=== PATIENT | male | born 1970 | race Caucasian/White ===

== ENCOUNTER 2019-09-09 15:59 | Emergency (ER) | payer OTHER, SELFPAY ==
--- NOTE | 2019-09-09 16:43 | HMH.EDUTC ---
[facility] [place] Clinical Impression: Viral syndrome Disposition: Home, Self-Care Condition on Discharge: Good Instructions: DI for Viral Syndrome, Preventing the Spread of Coronavirus Discharge Instructions Additional Instructions: Drink plenty of fluids. Take tylenol or ibuprofen for pain or fever. Take the medications as directed. Follow up with your regular doctor. GO TO THE ER FOR ANY WORSENING SYMPTOMS FOLLOW THE DIRECTIONS ON THE COVID-19 HAND OUT THAT WE GAVE YOU REGARDING SELF-ISOLATION UNTIL YOU KNOW YOUR COVID-19 RESULTS Prescriptions: Benzonatate [Tessalon Perle 100mg Cap] 100 mg PO TIDP PRN #30 cap PRN Reason: Cough Transmission Status: Received by [id number] Azithromycin [Z-Amos 250mg Tab*] 250 mg PO UD DOSE PK #6 tab Transmission Status: Received by [id number] Referrals: Eliu Perez MD [Primary Care Provider] - Forms: Work/School Release Time of Disposition: 17:09 Medical Decision Making - Medical Records Medical records reviewed: No: I reviewed the patient's medical records. - Delfino Inquiry Pt receiving controlled substance: No Vital Signs: 09/09/19 16:47 09/09/19 17:10 Temperature 98.5 F 98.5 F Temperature Source Oral Pulse Rate 89 Pulse Rate [Right Brachial] 89 Respiratory Rate 20 20 Blood Pressure 130/82 Blood Pressure [Right Arm] 130/82 Blood Pressure Mean [Right Arm] 98 Blood Pressure Source [Right Arm] Automatic Cuff Blood Pressure Position [Right Arm] Sitting 02 Sat by Pulse Oximetry 98 Oxygen Delivery Method Room Air - Lab Data Lab results reviewed: Yes: I reviewed the patient's lab results. Lab Results 09/09/19 16:38: Strep Scn Rapid Clinic Negative Orders (Tests/Meds): ORDERS Category Date Time Status SARS-CoV-2, MIKEL ([place]) Stat Lab 09/09/19 17:09 Received Strep Screen Confirmation Stat Micro 09/09/19 16:38 Received [facility] [place] - General Stated complaint: Cough, low grade fever 99.9 Time Seen by Provider: 09/09/19 16:43 - History of Present Illness Provider Complaint: He c/o feeling bad and having a fever up to 99.9 since yesterday. 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 - Related Data Previous Rx's Medication Instructions Recorded Azithromycin [Z-Amos 250mg Tab*] 250 mg PO UD DOSE PK #6 tab 09/09/19 Benzonatate [Tessalon Perle 100mg 100 mg PO TIDP PRN #30 cap 09/09/19 Cap] Allergies Allergy/AdvReac Type Severity Reaction Status Date / Time No Known Allergies Allergy Verified 09/09/19 16:51 [facility] [place] History - Hepatitis A Screen Attestation statement:: This patient has been screened for Hepatitis A risk factors. I have reviewed the patient's past medical history: Yes ROS Obtained: Yes All systems reviewed & no additional complaints - Constitutional Constitutional: Reports chills, Reports fever(s), Reports poor appetite, Reports malaise - Eyes Eyes: Reports system reviewed and no additional complaints, except as docu - ENT Ears, Nose, Mouth, and Throat: Reports as per HPI - Cardiovascular Cardiovascular: Denies chest pain - Respiratory Respiratory: Yes chest congestion, Yes cough Physical Exam - General General appearance: alert, in no apparent distress - Head Head exam: atraumatic, normocephalic, normal inspection - Eye Eye exam: Present: normal appearance, PERRL, EOMI - ENT ENT exam: Present: normal exam, normal oropharynx, mucous membranes moist, TM's normal bilaterally, normal external ear exam - Neck Neck exam: Present: normal inspection, full ROM, trachea midline. Absent: meningismus, lymphadenopathy - Chest Chest inspection: Present: normal inspection, symmetric chest wall rise. Absent: tenderness - Respiratory Respiratory exam: Present: normal lung sounds bilaterally. Absent: respiratory distress - Cardiovascular Cardiovascular exam: Present: regular rat
[2019-09-09 16:47] VITALS: BP 130/82; PULSE 89; RESP 20; TEMP 36.9; O2SAT 98; BMI 35.9
[2019-09-09 17:02] LABS: UTC Strep Screen (Rapid) Negative (Negative)
[2019-09-09 17:10] VITALS: BP 130/82; PULSE 89; RESP 20; TEMP 36.9; O2SAT 98
[2019-09-11 08:37] LABS: Covid-19 Nasal PCR Sendout UK DETECTED
== END 2019-09-09 17:12 | disposition home or self-care (01) ==
PROVIDERS: Emergency Provider Nurse Practitioner Family; PCP Family Medicine
DX: U07.1 COVID-19 (principal); B34.9 Viral infection, unspecified
CPT/HCPCS: 87880; 99202; U0003

== ENCOUNTER 2019-10-06 13:04 | Emergency (ER) | payer OTHER, SELFPAY ==
[2019-10-06 13:26] VITALS: BMI 37.3
[2019-10-06 13:28] VITALS: BP 173/90; PULSE 92; RESP 18; TEMP 36.9; O2SAT 98; BMI 37.3
--- NOTE | 2019-10-06 13:46 | HMH.EDUTC ---
[facility] [place]ression: COVID-19, Viral syndrome Disposition: Home, Self-Care Condition on Discharge: Good Instructions: Preventing the Spread of Coronavirus Discharge Instructions Additional Instructions: Drink plenty of fluids. Take tylenol or ibuprofen for pain or fever. Follow up with your regular doctor. GO TO THE ER FOR ANY WORSENING SYMPTOMS FOLLOW THE DIRECTIONS ON THE COVID-19 HAND OUT THAT WE GAVE YOU REGARDING SELF-ISOLATION UNTIL YOU KNOW YOUR COVID-19 RESULTS Referrals: Eliu Perez MD [Primary Care Provider] - Forms: Work/School Release Time of Disposition: 13:47 Medical Decision Making - Medical Records Medical records reviewed: No: I reviewed the patient's medical records. - Delfino Inquiry Pt receiving controlled substance: No Vital Signs: 10/06/19 13:28 Temperature 98.4 F Temperature Source Oral Pulse Rate [Left Brachial] 92 H Respiratory Rate 18 Blood Pressure [Left Arm] 173/90 H Blood Pressure Mean [Left Arm] 117 Blood Pressure Source [Left Arm] Automatic Cuff Blood Pressure Position [Left Arm] Sitting 02 Sat by Pulse Oximetry 98 Oxygen Delivery Method Room Air Orders (Tests/Meds): ORDERS Category Date Time Status Coronavirus 19 Swab (OUTPT) Routine Lab 10/06/19 13:39 [place] [facility] [place] - General Stated complaint: covid test previously positive Time Seen by Provider: 10/06/19 13:46 Mode of Arrival: Ambulatory Source of Information: Patient Limitations: No Limitations Description of Symptoms (Recalled from Triage Doc. by RN): PATIENT REQUESTING COVID TEST. HE TESTED POSITIVE 2 WEEKS AGO AND IS NEEDING A NEGATIVE RESULT TO RETURN TO WORK. DENIES ANY CURRENT SYMPTOMS HEENT Symptoms (Recalled from RN notes): No Resp Symptoms (Recalled from RN notes): No Skin Symptoms (Recalled from RN notes): No MS Symptoms (Recalled from RN notes): No Functional Status (Recalled from RN notes): WNL - History of Present Illness Provider Complaint: She has had COVID-19 over the past several weeks. Her work wants her to be retested before she returns to work. She denies any symptoms for the past week at least. She states that she never did run a fever or have many symptoms at all. - Related Data Previous Rx's Medication Instructions Recorded Azithromycin [Z-Amos 250mg Tab*] 250 mg PO UD DOSE PK #6 tab 09/09/19 Benzonatate [Tessalon Perle 100mg 100 mg PO TIDP PRN #30 cap 09/09/19 Cap] Allergies Allergy/AdvReac Type Severity Reaction Status Date / Time No Known Allergies Allergy Verified 09/09/19 16:51 - Worker's Comp Is this a Worker's Comp case?: No H History - Hepatitis A Screen Drug use history?: No High risk sexual behaviors?: No History of sexually transmitted infection?: No Currently employed?: No Childcare worker?: No Do you have indoor plumbing?: Yes Do you have electricity?: Yes Attestation statement:: This patient has been screened for Hepatitis A risk factors. I have reviewed the patient's past medical history: Yes Medical History: Reports:: Diabetes Mellitus Type 2 - Social History Alcohol Intake: never Occupational Status: employed ROS Obtained: Yes All systems reviewed & no additional complaints - Constitutional Constitutional: Denies chills, Denies fever(s) - Eyes Eyes: Denies eye discharge - ENT Ears, Nose, Mouth, and Throat: Denies dizziness, Denies otalgia, Denies sore throat - Cardiovascular Cardiovascular: Denies chest pain - Respiratory Respiratory: No chest congestion, No cough, No dyspnea, No stridor, No wheezing - Gastrointestinal Gastrointestingal: Denies: abdominal pain, diarrhea, nausea, reflux, vomiting Physical Exam - General General appearance: alert, in no apparent distress - Head Head exam: atraumatic, normocephalic, normal inspection - Eye Eye exam: Present: normal appearance, PERRL, EOMI - ENT ENT exam: Present: normal exam, normal oropharynx, mucous mem
[2019-10-06 13:50] VITALS: BP 173/90; PULSE 92; RESP 18; TEMP 36.9; O2SAT 98
--- NOTE | 2019-10-06 17:06 | PC.NURSE ---
PATIENT NOTIFIED OF POSITIVE COVID-19 RESULT
== END 2019-10-06 13:55 | disposition home or self-care (01) ==
PROVIDERS: Emergency Provider Nurse Practitioner Family; PCP Family Medicine
DX: U07.1 COVID-19 (principal)
CPT/HCPCS: 99201; U0003

== ENCOUNTER → 2021-10-16 07:52 | Outpatient (CLI) | payer BC, SELFPAY ==
--- NOTE | 2021-10-16 07:56 | CA_ITS ---
FINAL REPORT TECHNIQUE: Grayscale, color Doppler and duplex Doppler ultrasound of the kidneys, aorta and renal arteries was performed. Multiple velocities were measured. CLINICAL HISTORY: HTN,DM,EX SMOKER FINDINGS: Aorta velocity: 103 cm/sec Right kidney: 14 cm. No evidence of hydronephrosis or mass. Right intrarenal RI: From 0.68-0.78 Right renal artery velocity: 182 cm/sec. Right RAR (Renal artery-Aortic Ratio): 1.8 Left Kidney: 13.8 cm. No evidence of hydronephrosis or mass. Left intrarenal RI: From 0.71-0.74 Left renal artery velocity: 176 cm/sec. Left RAR (Renal Artery-Aortic Ratio): 1.8 IMPRESSION: No evidence of significant renal artery stenosis. CT angiogram or postcontrast MR angiogram would be more sensitive for evaluation of possible renal artery stenosis. Reviewed, Interpreted and Dictated by Mary Diallo MD Transcribed by Celena Fang Authenticated and [facility]
== END ==
PROVIDERS: PCP Family Medicine; Visit Provider Family Medicine
DX: I10 Essential (primary) hypertension (principal)
CPT/HCPCS: 93976

== ENCOUNTER 2022-01-13 18:59 | Emergency (ER) | payer BC, SELFPAY ==
[2022-01-13 19:15] VITALS: BP 168/77; PULSE 91; RESP 20; TEMP 36.9; O2SAT 96; BMI 38.2
--- NOTE | 2022-01-13 19:26 | EXP.UTC ---
Discharge Plan Disposition Patient Disposition: Home, Self-Care Condition: Good Prescriptions Prescriptions: New amoxicillin-pot clavulanate 875-125 mg Tablet 1 tab PO Q12H Qty: 20 0RF fluticasone propionate [Flonase Allergy Relief] 50 mcg/actuation spray,suspension 1 spray intranasal DAILY Qty: 16 0RF Rx Instructions: administer into each nostril benzonatate 100 mg capsule 100 mg PO TID PRN (Reason: cough) Qty: 30 0RF No Action metformin 500 mg tablet 1,000 mg PO DAILY Label Comments: TAKE 1 TABLET BY MOUTH TWICE DAILY WITH MEALS carvedilol 25 mg tablet 25 mg PO BID Label Comments: TAKE 1 TABLET BY MOUTH TWICE DAILY atorvastatin 20 mg tablet 20 mg PO HS Label Comments: TAKE 1 TABLET BY MOUTH ONCE DAILY amlodipine-benazepril 10-40 mg capsule 1 cap PO DAILY Label Comments: TAKE 1 CAPSULE BY MOUTH ONCE DAILY Trulicity 1.5 mg/0.5 mL pen injector 1.5 mg SQ WEEKLY Label Comments: INJECT 1 SYRINGE SUBCUTANEOUSLY ONCE A WEEK Steglatro 15 mg tablet 15 mg PO DAILY Label Comments: TAKE 1 TABLET BY MOUTH ONCE DAILY Referrals Follow up/Referrals: Eliu Perez MD [Primary Care Provider] - See instructions Activity Restrictions/Add. Instructions Additional Instructions/Restrictions: *Monitor Temp, Over the counter Motrin or Tylenol as directed/as needed Tylenol every 4 hours and Motrin every 6 hours (as long as your family doctor has told you that you can take it) for fever or pain. and straight to ER if unable to lower temp less than 101.0 after medication given *Warm salt water gargles may help to soothe the throat *Throat Lozenges? *Warm fluids like tea with honey may help to soothe the throat? *Sleep elevated *Humidifier/Vaporizer Take medication as prescribed Your throat swab was sent for culture. Those results are typically sent to your primary care. Be sure to follow up in 2-3 days with your family doctor/primary care physician if no improvement so they can review those result and treat if necessary. If you don?t have a primary care doctor, I recommend you get one but in the mean time, you will have to return to a walk in clinic Follow up IMMEDIATELY for new or worsening symptoms or no Noticeable improvement over the next 48-72 hours. 911 for difficulty breathing or swallowing Clinical Impressions Clinical Impression: Sinusitis, Bronchitis Stand Alone Forms Stand Alone Forms: Work/School Release Instructions Patient Instructions: Sinusitis, DI for Sinusitis Discharge ED Provider: Remedios Bl[facility] [place] HPI General Stated complaint: headache, congestion, sore throat, cough Time Seen by Provider: 01/13/22 19:26 History of Present Illness Provider Complaint: Patient states that he started about with sinus congestion and pressure States that he has been taking OTC cold meds but not helped much States that now he is having pain in both ears sore throat and feels like it is trying to move into his chest like bronchitis so today he came in when he was still not feeling better to get checked out Related Data Home Medications Medication Instructions Recorded Confirmed amlodipine 10 mg-benazepril 40 mg 1 cap PO DAILY Hypertension 01/13/22 01/13/22 capsule atorvastatin 20 mg tablet 20 mg PO HS Cholesterol 01/13/22 01/13/22 carvedilol 25 mg tablet 25 mg PO BID Hypertension 01/13/22 01/13/22 dulaglutide 1.5 mg/0.5 mL 1.5 mg SQ WEEKLY Diabetes 01/13/22 01/13/22 subcutaneous pen injector (Trulicity) ertugliflozin 15 mg tablet 15 mg PO DAILY . 01/13/22 01/13/22 (Steglatro) metformin 500 mg tablet 1,000 mg PO DAILY Diabetes 01/13/22 01/13/22 Previous Rx's Medication Instructions Recorded amoxicillin 875 mg-potassium 1 tab PO Q12H #20 tabs 01/13/22 clavulanate 125 mg tablet benzonatate 100 mg capsule 100 mg PO TID PRN cough #30 caps 01/13/22 fluticasone pr
[2022-01-13 19:34] LABS: UTC Influenza A Antigen Negative (Negative); UTC Influenza B Antigen Negative (Negative); UTC Strep Screen (Rapid) Negative (Negative)
[2022-01-13 19:50] VITALS: BP 168/77; PULSE 91; RESP 20; TEMP 36.9; O2SAT 96
== END 2022-01-13 19:54 | disposition home or self-care (01) ==
PROVIDERS: Emergency Provider Nurse Practitioner; PCP Family Medicine
DX: J32.9 Chronic sinusitis, unspecified (principal); J40 Bronchitis, not specified as acute or chronic
CPT/HCPCS: 99212; 87804; 87880